=== PATIENT | male | born 1965 | race Caucasian/White ===

== ENCOUNTER 2019-09-04 | Emergency (ER) | payer SELFPAY ==
[~2019-09-04] MED LIST: ADLT ASA LOW81 MG PO; BACTRIM DS1 TAB OR; DARVOCET-N 100100 MG OR; KEFLEX500 MG OR; LIPITOR40 MG PO; LISINOPRIL10 MG PO; LORTAB 5 OR; MOTRIN800 MG OR; NO HOME MEDS; SERTRALINE50 MG PO; [UNRECOGNIZED DRUG - CODE] OR
[2019-09-04 19:18] LABS: HEMATOCRIT 48.3 % (39.0-50.0); IMMATURE GRANULOCYTES 0.1 % (0.0-5.0); MEAN CELL VOLUME 87.3 fL CALC (80.0-100.0); MEAN CORPUSCULAR HGB 28.9 pG CALC (26.0-32.0); MEAN CORPUSCULAR HGB CONC 33.1 g/dL CAL (32.0-36.0); NEUT# 5.23 thou/uL (1.82-7.42); RED BLOOD COUNT 5.53 mill/uL (4.70-6.10); RED CELL DISTRI WIDTH 12.2 % (11.5-15.5)
[2019-09-04 19:20] LABS: URINE BILIRUBIN - DIPSTICK NEGATIVE (NEGATIVE); URINE BLOOD DIPSTICK NEGATIVE (NEGATIVE); URINE COLOR YELLOW; URINE GLUCOSE - DIPSTICK NEGATIVE (NEGATIVE); URINE KETONE NEGATIVE (NEGATIVE); URINE NITRITE - DIPSTICK NEGATIVE (Negative); URINE PROTEIN - DIPSTICK NEGATIVE (NEG-TRACE); URINE SPECIFIC GRAVITY 1.025; URINE UROBILINOGEN - DIPSTICK 0.2 E.U./dL (0.2)
[2019-09-04 19:22] LABS: URINE LEUK ESTERASE SMALL (NEGATIVE)
[2019-09-04 19:28] LABS: URINE RBC 0-2 RBC/hpf (0-5)
[2019-09-04 19:37] LABS: ALBUMIN 4.4 g/dL (3.2-5.0); ALKALINE PHOSPHATASE 60 u/l (38-126); ANION GAP 12 (6-22 (CALC)); BUN 12 mg/dL (9-20); BUN/CREATININE RATIO 13 (12-20 (CALC)); CARBON DIOXIDE 26 mmol/l (22-30); CHLORIDE 104 mmol/l (95-108); GFR > 60 ML/MIN (>=60 (CALC)); GFR FOR AFR.AMER. > 60 ML/MIN (>=60 (CALC)); POTASSIUM 4.5 mmol/l (3.5-5.1); SGOT/AST 24 u/l (17-59); SODIUM 138 mmol/l (137-146); TOTAL PROTEIN 7.2 g/dL (6.3-8.2)
[2019-09-04 19:41] LABS: BILIRUBIN, TOTAL 0.3 mg/dL (0.0-1.4)
[2019-09-04] MEDS ORDERED: CEPHALEXIN500 M1 PO (20:55)
[2019-09-04] MEDS ORDERED: NAPROXEN500 MG PO (20:55)
== END 2019-09-04 21:13 | disposition home or self-care (01) | DRG 552 ==
PROVIDERS: Emergency Medicine
DX: S33.5XXA Sprain of ligaments of lumbar spine, initial encounter (principal); N39.0 Urinary tract infection, site not specified; I10 Essential (primary) hypertension; F17.210 Nicotine dependence, cigarettes, uncomplicated; X58.XXXA Exposure to other specified factors, initial encounter
CPT/HCPCS: Q9967

== ENCOUNTER 2020-05-14 15:06 | Emergency (ER) | payer SELFPAY ==
[~2020-05-14] VITALS: Ht 170.2 cm; Wt 81.0 kg
[~2020-05-14 15:06] MED LIST changes: +CEPHALEXIN500 M1 PO; +NAPROXEN500 MG PO
[2020-05-14 15:50] VITALS: BP 157/89
== END 2020-05-14 15:50 | disposition home or self-care (01) | DRG 392 ==
LOC: ED 15:06
DX: R10.32 Left lower quadrant pain (principal); I10 Essential (primary) hypertension; F17.200 Nicotine dependence, unspecified, uncomplicated; M54.9 Dorsalgia, unspecified; G89.29 Other chronic pain

== ENCOUNTER 2020-05-18 13:45 | Emergency (ER) | payer SELFPAY ==
[~2020-05-18] VITALS: Ht 170.2 cm; Wt 81.0 kg
[2020-05-18 14:32] VITALS: BP 146/78
== END 2020-05-18 14:30 | disposition left against medical advice (07) | DRG 392 ==
LOC: ED 13:45
DX: R10.32 Left lower quadrant pain (principal); I10 Essential (primary) hypertension; F17.200 Nicotine dependence, unspecified, uncomplicated; Z91.19 Patient's noncompliance with other medical treatment and regimen

== ENCOUNTER 2021-05-27 15:12 | Emergency (ER) | payer MEDICAID ==
[~2021-05-27] VITALS: Ht 170.2 cm; Wt 68.0 kg
[2021-05-27] MEDS ORDERED: SIMVASTATIN20 M1 PO (15:32)
[2021-05-27] MEDS ORDERED: CODEINE/GUAIFEN1 SOL PO (16:41)
[2021-05-27] MEDS ORDERED: TAM75CAP PO (16:41)
[2021-05-27 17:14] VITALS: BP 140/85
== END 2021-05-27 17:34 | disposition home or self-care (01) ==
LOC: ED 15:12
DX: J10.1 Influenza due to other identified influenza virus with other respiratory manifestations (principal)

== ENCOUNTER 2022-01-05 07:48 | Day surgery (SDC) | payer OTHER ==
[~2022-01-05] VITALS: Ht 170.2 cm; Wt 73.5 kg
[~2022-01-05 07:48] MED LIST changes: +CODEINE/GUAIFEN1 SOL PO; +EC-NAPROXEN500 MG; +LIPITOR10 M1 PO; +OXTELLAR XR300 MG; +RISPERIDONE2 MG PO; +SIMVASTATIN20 M1 PO; +TAM75CAP PO; +VITAMIN D31000 UNI1 PO
[2022-01-05 11:12] VITALS: BP 110/75
== END 2022-01-05 11:05 | disposition home or self-care (01) ==
LOC: ENDO 07:48
PROVIDERS: ATTEND Surgery
DX: Z12.11 Encounter for screening for malignant neoplasm of colon (principal); D12.5 Benign neoplasm of sigmoid colon; I10 Essential (primary) hypertension; F41.9 Anxiety disorder, unspecified

== ENCOUNTER → 2022-02-04 | Emergency (ER) | payer OTHER ==
[~2022-02-04] VITALS: Ht 170.2 cm; Wt 72.7 kg
[2022-02-04] VITALS (18 sets, daily range): BP systolic 125–147; BP diastolic 76–98
[2022-02-04 11:04] LABS: IMMATURE GRANULOCYTES 0.5 % (0.0-5.0); MEAN CELL VOLUME 88.4 fL CALC (80.0-100.0); MEAN CORPUSCULAR HGB 29.5 pG CALC (26.0-32.0); MEAN CORPUSCULAR HGB CONC 33.3 g/dL CAL (32.0-36.0); NEUT# 5.12 thou/uL (1.82-7.42); RED BLOOD COUNT 5.43 mill/uL (4.70-6.10); RED CELL DISTRI WIDTH 12.3 % (11.5-15.5)
[2022-02-04 11:24] LABS: ALBUMIN 4.6 g/dL (3.2-5.0); ALKALINE PHOSPHATASE 60 u/l (38-126); ANION GAP 13 (6-22 (CALC)); BUN 11 mg/dL (9-20); BUN/CREATININE RATIO 13 (12-20 (CALC)); CARBON DIOXIDE 29 mmol/l (22-30); CHLORIDE 103 mmol/l (95-108); CREATININE 0.9 mg/dL (0.7-1.3); GFR FOR AFR.AMER. > 60 ML/MIN (>=60 (CALC)); GFR OTHER RACES > 60 ML/MIN (>=60 (CALC)); POTASSIUM 3.9 mmol/l (3.5-5.1); SGOT/AST 21 u/l (17-59); SODIUM 141 mmol/l (137-146); TOTAL PROTEIN 7.7 g/dL (6.3-8.2)
[2022-02-04 11:28] LABS: BILIRUBIN, TOTAL 0.6 mg/dL (0.0-1.4)
== END | disposition home or self-care (01) ==
LOC: ED 10:43
PROVIDERS: Family Medicine
DX: R51.9 Headache, unspecified (principal); R53.83 Other fatigue; F31.9 Bipolar disorder, unspecified; F41.9 Anxiety disorder, unspecified; F17.200 Nicotine dependence, unspecified, uncomplicated

== ENCOUNTER 2022-04-11 02:12 | Emergency (ER) | payer OTHER ==
[~2022-04-11] VITALS: Ht 170.2 cm; Wt 72.0 kg
[2022-04-11] VITALS (21 sets, daily range): BP systolic 109–149; BP diastolic 67–98
[2022-04-11 02:52] LABS: HEMATOCRIT 49.7 % (39.0-50.0); HEMOGLOBIN 16.9 g/dl (14.0-18.0); IMMATURE GRANULOCYTES 0.2 % (0.0-5.0); MEAN CORPUSCULAR HGB 29.6 pG CALC (26.0-32.0); NEUT# 7.57 thou/uL (1.82-7.42); RED BLOOD COUNT 5.71 mill/uL (4.70-6.10); RED CELL DISTRI WIDTH 11.8 % (11.5-15.5)
[2022-04-11 03:17] LABS: ALBUMIN 4.6 g/dL (3.2-5.0); ALKALINE PHOSPHATASE 65 u/l (38-126); AMYLASE 73 u/l (30-110); ANION GAP 15 (6-22 (CALC)); BUN 7 mg/dL (9-20); BUN/CREATININE RATIO 9 (12-20 (CALC)); CARBON DIOXIDE 25 mmol/l (22-30); CHLORIDE 103 mmol/l (95-108); CREATININE 0.8 mg/dL (0.7-1.3); GFR FOR AFR.AMER. > 60 ML/MIN (>=60 (CALC)); GFR OTHER RACES > 60 ML/MIN (>=60 (CALC)); LIPASE 41 u/l (23-300); POTASSIUM 3.5 mmol/l (3.5-5.1); SGOT/AST 26 u/l (17-59); SODIUM 139 mmol/l (137-146); TOTAL PROTEIN 7.9 g/dL (6.3-8.2)
[2022-04-11 03:19] LABS: BILIRUBIN, TOTAL 0.9 mg/dL (0.0-1.4)
[2022-04-11 03:29] LABS: MYOGLOBIN 53 ng/mL (0 - 121)
[2022-04-11 06:33] LABS: URINE BILIRUBIN - DIPSTICK NEGATIVE (NEGATIVE); URINE BLOOD DIPSTICK MODERATE (NEGATIVE); URINE COLOR YELLOW; URINE GLUCOSE - DIPSTICK NEGATIVE (NEGATIVE); URINE KETONE NEGATIVE (NEGATIVE); URINE PH 6.5 (4.5-8.0); URINE PROTEIN - DIPSTICK NEGATIVE (NEG-TRACE); URINE UROBILINOGEN - DIPSTICK 0.2 E.U./dL (0.2)
[2022-04-11 06:43] LABS: URINE LEUK ESTERASE NEGATIVE (NEGATIVE); URINE NITRITE - DIPSTICK NEGATIVE (Negative)
[2022-04-11 06:48] LABS: URINE BACTERIA FEW hpf; URINE EPITHELIAL CELLS FEW EPI/hpf (0-FEW)
== END 2022-04-11 07:40 | disposition home or self-care (01) ==
LOC: ED 02:12
PROVIDERS: Emergency Medicine
DX: R07.89 Other chest pain (principal); F41.9 Anxiety disorder, unspecified; F19.10 Other psychoactive substance abuse, uncomplicated; F32.A Depression, unspecified; F17.200 Nicotine dependence, unspecified, uncomplicated
CPT/HCPCS: J2060

== ENCOUNTER 2022-11-13 17:48 | Emergency (ER) | payer OTHER ==
[~2022-11-13] VITALS: Ht 170.2 cm; Wt 74.0 kg
[2022-11-13] MEDS ORDERED: TOPROL XL50 MG PO (18:03)
[2022-11-13] MEDS ORDERED: ATORVASTATIN CA20 MG PO (18:04)
[2022-11-13 18:08] VITALS: BP 121/87
[2022-11-13 18:30] VITALS: BP 126/76
[2022-11-13] MEDS ORDERED: VOLTAREN - GENE75 MG PO (18:41)
[2022-11-13] MEDS ORDERED: TRAMADOL HCL50 MG PO (18:41)
[2022-11-13 18:44] VITALS: BP 126/76
== END 2022-11-13 18:55 | disposition home or self-care (01) ==
LOC: ED 17:48
DX: M54.2 Cervicalgia (principal); G89.29 Other chronic pain; F41.9 Anxiety disorder, unspecified; F32.A Depression, unspecified; F17.210 Nicotine dependence, cigarettes, uncomplicated

== ENCOUNTER 2023-06-04 15:49 | Emergency (ER) | payer OTHER ==
[~2023-06-04] VITALS: Ht 167.6 cm; Wt 68.0 kg
[~2023-06-04 15:49] MED LIST changes: +ABILIFY10 MG PO; +ATORVASTATIN CA20 MG PO; +CEPHALEXIN500 MG PO; +GABAPENTIN300 M2 PO; +METHOCARBAMOL500 MG PO; +NICOTINE T14 MG/241; +OXYCODONE5 M1 PO; +RISPERIDONE2 M1; +RISPERIDONE3 M1 PO; +TOPROL XL50 MG PO; +TRAMADOL HCL50 MG PO; +TRILEPTAL300 MG PO; +VITAMIN D1.25 MG; +VOLTAREN - GENE75 MG PO
[2023-06-04 15:55] VITALS: BP 103/63
[2023-06-04 16:15] VITALS: BP 117/74
[2023-06-04 16:19] LABS: BASO% 0.4 % (0-3); HEMATOCRIT 46.8 % (39.0-50.0); HEMOGLOBIN 14.9 g/dl (14.0-18.0); IMMATURE GRANULOCYTES 0.3 % (0.0-5.0); LYMPH% 31.2 % (15-41); MEAN CELL VOLUME 88.5 fL CALC (80.0-100.0); MEAN CORPUSCULAR HGB 28.2 pG CALC (26.0-32.0); MEAN CORPUSCULAR HGB CONC 31.8 g/dL CAL (32.0-36.0); MONO% 7.6 % (2-13); NEUT# 4.67 thou/uL (1.82-7.42); NEUT% 50.5 % (42-76); RED BLOOD COUNT 5.29 mill/uL (4.70-6.10); RED CELL DISTRI WIDTH 12.3 % (11.5-15.5)
[2023-06-04 16:22] LABS: ALKALINE PHOSPHATASE 90 u/l (38-126); ANION GAP 11 (6-22 (CALC)); BILIRUBIN, TOTAL 0.4 mg/dL (0.2-1.3); BUN 9 mg/dL (9-20); BUN/CREATININE RATIO 12 (12-20 (CALC)); CARBON DIOXIDE 28 mmol/l (22-30); CHLORIDE 101 mmol/l (95-108); CREATININE 0.7 mg/dL (0.7-1.3); GFR FOR AFR.AMER. > 60 ML/MIN (>=60 (CALC)); GFR OTHER RACES > 60 ML/MIN (>=60 (CALC)); LIPASE 34 u/l (23-300); POTASSIUM 4.4 mmol/l (3.5-5.1); SGOT/AST 24 u/l (17-59); SODIUM 136 mmol/l (137-146)
[2023-06-04 16:23] LABS: ALBUMIN 4.5 g/dL (3.2-5.0); TOTAL PROTEIN 7.5 g/dL (6.3-8.2)
[2023-06-04] MEDS ORDERED: TRAMADOL HYDROC50 M1 PO (17:28)
[2023-06-04 17:38] VITALS: BP 117/74
== END 2023-06-04 18:21 | disposition home or self-care (01) ==
LOC: ED 15:49
PROVIDERS: Family Medicine
DX: M54.6 Pain in thoracic spine (principal); R07.9 Chest pain, unspecified; S80.812A Abrasion, left lower leg, initial encounter; S80.811A Abrasion, right lower leg, initial encounter; F41.9 Anxiety disorder, unspecified; F32.A Depression, unspecified; F17.200 Nicotine dependence, unspecified, uncomplicated; V13.4XXA Pedal cycle driver injured in collision with car, pick-up truck or van in traffic accident, initial encounter
CPT/HCPCS: Q9967

== ENCOUNTER 2024-02-29 06:29 | Day surgery (SDC) | payer OTHER ==
[~2024-02-29] VITALS: Ht 170.2 cm; Wt 72.6 kg
[~2024-02-29 06:29] MED LIST changes: +TRAMADOL HYDROC50 M1 PO
[2024-02-29] MEDS ORDERED: TAMSULOSIN0.4 MG PO (07:03)
[2024-02-29] MEDS ORDERED: PROZAC10 MG PO (07:04)
[2024-02-29] MEDS ORDERED: TRIAMCINOLONE ACETONIDE 40 MG/ML ML ONE (07:43)
[2024-02-29] MEDS ORDERED: LIDOCAINE MPF 1% (10 MG/ML) 5 ML VIAL ONE (07:43)
[2024-02-29] MEDS ORDERED: BUPIVACAINE HCL PF 0.5 % 50 MG/10 ML SDV ONE (07:43)
[2024-02-29 09:45] VITALS: BP 120/71
== END 2024-02-29 08:20 | disposition home or self-care (01) ==
LOC: ORM 06:29
PROVIDERS: ATTEND Student in an Organized Health Care Education/Training Program
DX: M46.1 Sacroiliitis, not elsewhere classified (principal)
CPT/HCPCS: J3301